=== PATIENT | female | born 1975 | race Two or more races ===

== ENCOUNTER 2021-02-16 00:28 | Emergency (ER) | payer MEDICAID, OTHER ==
[~2021-02-16] VITALS: Ht 162.6 cm; Wt 96.1 kg
[~2021-02-16 00:28] MED LIST: DIAZ5TAB4 PO; HYDR25TA5 PO; IBUP-1986 PO; LOSA50TA64 PO; METF500T PO; PHEN30SP5 NS; PROP10TA10 PO; RANI-366 PO
[2021-02-16 00:54] VITALS: BP 138/85
[2021-02-16] MEDS ORDERED: ketorolac trometh. 30mg/ml inj. IM ONE (04:50)
[2021-02-16] MEDS ORDERED: HYDROcodone/acetaminophen 10/325mg tab PO ONE (04:50)
[2021-02-16] MEDS ORDERED: HYDR-3965 PO (04:52)
== END 2021-02-16 05:34 | disposition home or self-care (01) ==
LOC: ER 00:30
DX: T25.021A Burn of unspecified degree of right foot, initial encounter (principal); M79.671 Pain in right foot; I10 Essential (primary) hypertension; E11.9 Type 2 diabetes mellitus without complications; F41.9 Anxiety disorder, unspecified; Z98.890 Other specified postprocedural states; Z72.89 Other problems related to lifestyle; Z88.8 Allergy status to other drugs, medicaments and biological substances; Z79.899 Other long term (current) drug therapy; X08.8XXA Exposure to other specified smoke, fire and flames, initial encounter
CPT/HCPCS: 96372; 99283; J1885

== ENCOUNTER 2021-08-27 19:18 | Emergency (ER) | payer MEDICAID, OTHER ==
[~2021-08-27] VITALS: Ht 162.6 cm; Wt 69.8 kg
[2021-08-27] MEDS ORDERED: cephalexin 500mg capsule PO ONE (20:45)
[2021-08-27] MEDS ORDERED: morphine 4 MG/ML inj SYRINge IM ONE (20:45)
[2021-08-27] MEDS ORDERED: ondansetron 4mg rapidly disintigrating tab PO ONE (20:45)
[2021-08-27] MEDS ORDERED: ketorolac trometh. 30mg/ml inj. IM ONE (20:45)
[2021-08-27 21:23] LABS: BASOPHILS # (AUTO) 0.1 X10'3 (0-0.2); BASOPHILS % (AUTO) 0.6 % (0-1); EOSINOPHILS # (AUTO) 0.2 X10'3 (0-0.9); EOSINOPHILS % (AUTO) 2.6 % (0-6); HEMATOCRIT 32.4 % (35.0-45.0); HEMOGLOBIN 10.6 g/dl (12.0-16.0); LYMPHOCYTES # (AUTO) 1.3 X10'3 (1.1-4.8); LYMPHOCYTES % (AUTO) 14.5 % (21-51); MEAN CORPUSCULAR HEMOGLOBIN 31.5 PG (27.0-31.0); MEAN CORPUSCULAR HGB CONC 32.8 g/dL (33.0-36.5); MEAN CORPUSCULAR VOLUME 95.8 FL (78-98); MEAN PLATELET VOLUME 7.6 FL (7.4-10.4); MONOCYTES # (AUTO) 0.7 X10'3 (0-0.9); MONOCYTES % (AUTO) 7.8 % (2-12); NEUTROPHILS # (AUTO) 6.7 X10'3 (1.8-7.7); NEUTROPHILS % (AUTO) 74.5 % (42-75); PLATELET COUNT 318 X10'3 (140-440); RED BLOOD COUNT 3.38 X10'6 (4.20-5.60); RED CELL DISTRIBUTION WIDTH 17.7 % (11.5-14.5)
[2021-08-27 21:28] LABS: ALANINE AMINOTRANSFERASE 14 U/L (12-78); ALBUMIN 3.4 G/DL (3.4-5.0); ALBUMIN/GLOBULIN RATIO 0.7 (1.1-1.5); ALKALINE PHOSPHATASE 76 IU/L (46-116); ANION GAP 10 (8-16); ASPARTATE AMINO TRANSFERASE 12 U/L (10-37); BILIRUBIN,TOTAL 0.2 MG/DL (0.1-1.0); BLOOD UREA NITROGEN 38 MG/DL (7-18); BUN/CREATININE RATIO 17.3 (6.6-38.0); C-REACTIVE PROTEIN 1.45 MG/DL (0.0-0.5); CALCIUM 8.7 MG/DL (8.5-10.1); CHLORIDE 106 MMOL/L (99-107); GLUCOSE 144 MG/DL (70-104); POTASSIUM 4.1 MMOL/L (3.5-5.1); SODIUM 142 MMOL/L (135-145); TOTAL CARBON DIOXIDE 26.1 MMOL/L (24-32); eGFR 24 ML/MIN
[2021-08-27] MEDS ORDERED: normal saline 1000ml 1,000 ML IV ONE ×2 (21:45)
[2021-08-27] MEDS ORDERED: HYDR-3965 PO ×2 (22:38→22:39)
[2021-08-27] MEDS ORDERED: ONDA4TAB6 PO (22:38)
[2021-08-27] MEDS ORDERED: CEPH250T PO (22:38)
[2021-08-28 00:02] VITALS: BP 132/78
== END 2021-08-27 23:45 | disposition home or self-care (01) ==
LOC: ER 19:18
DX: S80.212A Abrasion, left knee, initial encounter (principal); I10 Essential (primary) hypertension; E11.9 Type 2 diabetes mellitus without complications; Z87.81 Personal history of (healed) traumatic fracture; Z72.89 Other problems related to lifestyle; Z88.8 Allergy status to other drugs, medicaments and biological substances; Z79.899 Other long term (current) drug therapy; W19.XXXA Unspecified fall, initial encounter; Y93.89 Activity, other specified; Y92.89 Other specified places as the place of occurrence of the external cause; Y99.8 Other external cause status
CPT/HCPCS: 29505; 36415; 71045; 73564; 80053; 83605; 84145; 85025; 85651; 86140; 87040; 96360; 96372; 99284; J1885; J2270; J7030

== ENCOUNTER 2022-08-16 17:57 | Emergency (ER) | payer MEDICAID ==
[~2022-08-16] VITALS: Ht 162.6 cm; Wt 92.1 kg
[~2022-08-16 17:57] MED LIST changes: +ONDA4TAB6 PO
[2022-08-16 18:39] LABS: URINE HCG NEGATIVE (NEG)
[2022-08-16 18:41] LABS: BASOPHILS # (AUTO) 0.1 X10'3 (0-0.2); BASOPHILS % (AUTO) 0.9 % (0-1); EOSINOPHILS % (AUTO) 0.6 % (0-6); HEMATOCRIT 33.3 % (35.0-45.0); HEMOGLOBIN 10.9 g/dl (12.0-16.0); LYMPHOCYTES # (AUTO) 1.1 X10'3 (1.1-4.8); LYMPHOCYTES % (AUTO) 18.9 % (21-51); MEAN CORPUSCULAR HEMOGLOBIN 33.5 PG (27.0-31.0); MEAN CORPUSCULAR HGB CONC 32.8 g/dL (33.0-36.5); MEAN CORPUSCULAR VOLUME 101.9 FL (78-98); MEAN PLATELET VOLUME 7.9 FL (7.4-10.4); MONOCYTES # (AUTO) 0.4 X10'3 (0-0.9); MONOCYTES % (AUTO) 6.8 % (2-12); NEUTROPHILS # (AUTO) 4.1 X10'3 (1.8-7.7); NEUTROPHILS % (AUTO) 72.8 % (42-75); PLATELET COUNT 231 X10'3 (140-440); RED BLOOD COUNT 3.27 X10'6 (4.20-5.60); WHITE BLOOD COUNT 5.7 X10'3 (4.5-11.0)
[2022-08-16 18:51] LABS: ALANINE AMINOTRANSFERASE 14 U/L (12-78); ALBUMIN 3.4 G/DL (3.4-5.0); ALBUMIN/GLOBULIN RATIO 0.7 (1.1-1.5); ALKALINE PHOSPHATASE 62 IU/L (46-116); ANION GAP 6 (8-16); ASPARTATE AMINO TRANSFERASE 15 U/L (10-37); BILIRUBIN,TOTAL 0.2 MG/DL (0.1-1.0); BLOOD UREA NITROGEN 16 MG/DL (7-18); BUN/CREATININE RATIO 7.8 (6.6-38.0); CALCIUM 8.8 MG/DL (8.5-10.1); CHLORIDE 105 MMOL/L (99-107); CREATININE 2.06 MG/DL (0.40-0.90); GLUCOSE 106 MG/DL (70-104); LIPASE 216 U/L (73-393); POTASSIUM 4.5 MMOL/L (3.5-5.1); SODIUM 138 MMOL/L (135-145); TOTAL CARBON DIOXIDE 26.6 MMOL/L (24-32); TOTAL PROTEIN 8.2 G/DL (6.4-8.2); eGFR 26 ML/MIN
[2022-08-16 18:52] LABS: CLARITY,URINE SLIGHTLY CLOUDY (Clear); COLOR,URINE YELLOW (Yellow); GLUCOSE, URINE NEGATIVE (Neg); KETONES,URINE NEGATIVE (Neg); LEUKOCYTE ESTERASE ,URINE MODERATE (Neg); NITRITES, URINE NEGATIVE (Neg); OCCULT BLOOD,URINE TRACE-INTACT (Neg); PROTEIN,URINE 30 mg/dl (Neg); UROBILINOGEN,URINE 0.2 E.U/dL (0.2-1.0)
[2022-08-16 19:04] LABS: UA COLLECTION TYPE CLN CATCH MIDSTREAM
[2022-08-16 19:06] LABS: MUCUS STRANDS FEW /LPF (Neg); SQUAMOUS EPITHELIAL CELL,UR MODERATE /LPF (FEW); TRANSITIONAL EPI CELLS,URINE FEW /HPF
[2022-08-16 19:07] LABS: BACTERIA,URINE 3+ /HPF (Neg)
[2022-08-16] MEDS ORDERED: dexamethasone sod phosphate 10mg/ml inj IM STA (20:41)
[2022-08-16] MEDS ORDERED: ONDA4TAB12 PO (20:44)
[2022-08-16] MEDS ORDERED: AMOX-117 PO (20:44)
[2022-08-16] MEDS ORDERED: ondansetron 4mg rapidly disintigrating tab PO ONE (20:45)
[2022-08-16] MEDS ORDERED: amox tr/potassium clavulanate 875/125mg TAB PO ONE (20:45)
[2022-08-16 21:22] VITALS: BP 164/104
== END 2022-08-16 21:29 | disposition home or self-care (01) ==
LOC: ER 17:58
DX: J20.9 Acute bronchitis, unspecified (principal); N39.0 Urinary tract infection, site not specified; I10 Essential (primary) hypertension; E11.9 Type 2 diabetes mellitus without complications; F41.9 Anxiety disorder, unspecified; Z88.5 Allergy status to narcotic agent; Z79.899 Other long term (current) drug therapy; Z79.1 Long term (current) use of non-steroidal anti-inflammatories (NSAID); Z79.2 Long term (current) use of antibiotics
CPT/HCPCS: 36415; 80053; 81001; 81025; 83690; 85025; 87077; 87088; 87186; 96372; 99283; J1100; 99282

== ENCOUNTER 2023-06-05 15:22 | Emergency (ER) | payer MEDICAID ==
[~2023-06-05] VITALS: Ht 162.6 cm; Wt 90.0 kg
[~2023-06-05 15:22] MED LIST changes: +ONDA4TAB12 PO
[2023-06-05 15:37] VITALS: BP 154/82; PULSE 88; TEMP 97.8; O2SAT 97
--- NOTE | 2023-06-05 16:30 | NUR ---
pt here for pain in here left leg radiating from top of buttocks to bottom of left foot patient states no new injury but history of mrsa after surgery on left ankle 4 years ago. XPLVN
[2023-06-05] MEDS ORDERED: ketorolac tromethamine 15mg/ml inj. IM ONE (17:30)
[2023-06-05] MEDS ORDERED: predniSONE 20 mg tablet PO ONE (17:30)
[2023-06-05] MEDS ORDERED: oxyCODONE/APAP 5-325mg tablet PO ONE (17:30)
[2023-06-05] MEDS ORDERED: OXYC-145 PO (17:35)
[2023-06-05] MEDS ORDERED: PRED20TA PO (17:35)
[2023-06-05 18:09] VITALS: RESP 18
--- NOTE | 2023-06-05 19:01 | NUR ---
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
[2023-06-06] MEDS ORDERED: OXYC-134 PO (12:36)
== END 2023-06-05 18:00 | disposition home or self-care (01) ==
LOC: ER 15:23
DX: M79.672 Pain in left foot (principal); E11.9 Type 2 diabetes mellitus without complications; I10 Essential (primary) hypertension; F41.9 Anxiety disorder, unspecified; Z87.81 Personal history of (healed) traumatic fracture; Z79.899 Other long term (current) drug therapy
CPT/HCPCS: 73610; 96372; 99283; J1885; J7512